=== PATIENT | female | born 1985 | race Two or more races ===

== ENCOUNTER 2022-11-16 10:34 | Outpatient (CLI) | payer OTHER | END 2022-11-16 11:20 | disposition home or self-care (01) | LOC: EDBD 10:34 → PRENATAL 10:34 | PROVIDERS: ATTEND Obstetrics & Gynecology Maternal & Fetal Medicine | DX: O36.80X0 Pregnancy with inconclusive fetal viability, not applicable or unspecified (principal); O09.519 Supervision of elderly primigravida, unspecified trimester; Z3A.12 12 weeks gestation of pregnancy ==

== ENCOUNTER 2023-01-04 10:35 | Outpatient (CLI) | payer OTHER | END 2023-01-04 12:07 | disposition home or self-care (01) | LOC: PRENATAL 10:35 | PROVIDERS: ATTEND Obstetrics & Gynecology Maternal & Fetal Medicine | DX: O35.9XX0 Maternal care for (suspected) fetal abnormality and damage, unspecified, not applicable or unspecified (principal); O35.3XX0 Maternal care for (suspected) damage to fetus from viral disease in mother, not applicable or unspecified; O34.80 Maternal care for other abnormalities of pelvic organs, unspecified trimester; O44.00 Complete placenta previa NOS or without hemorrhage, unspecified trimester; O09.519 Supervision of elderly primigravida, unspecified trimester; Z3A.19 19 weeks gestation of pregnancy ==

== ENCOUNTER 2023-04-02 13:36 | Outpatient (CLI) | payer OTHER | END 2023-04-02 13:37 | disposition home or self-care (01) | LOC: PRENATAL 13:36 | PROVIDERS: ATTEND Obstetrics & Gynecology Maternal & Fetal Medicine | DX: O26.849 Uterine size-date discrepancy, unspecified trimester (principal); O36.8199 Decreased fetal movements, unspecified trimester, other fetus; O09.519 Supervision of elderly primigravida, unspecified trimester; O34.80 Maternal care for other abnormalities of pelvic organs, unspecified trimester; Z3A.34 34 weeks gestation of pregnancy ==

== ENCOUNTER 2023-04-22 12:15 | Emergency (ER) | payer OTHER ==
[~2023-04-22] VITALS: Ht 175.3 cm; Wt 88.0 kg
[2023-04-22] MEDS ORDERED: PRENATAL + DHA1 EAC1 PO (12:39)
[2023-04-22 13:52] LABS: HEMATOCRIT 29.7 % (36.0-45.00); HEMOGLOBIN 9.6 g/dL (12.0-15.00); MEAN CELL VOLUME 71.5 fL (80.00-100.00); MEAN CORPUSCULAR HEMOGLOBIN 23.1 pg (27.00-32.0); MEAN CORPUSCULAR HGB CONC 32.3 g/dl (32.0-36.0); PLATELET COUNT 299 K/uL (150-450); RED BLOOD COUNT 4.15 M/uL (4.00-6.00); RED CELL DISTRIBUTION WIDTH 16.5 % (11.5-14.5)
[2023-04-22 14:09] LABS: ALBUMIN 2.9 gm/dL (3.4-5.0); BILIRUBIN TOTAL 0.34 mg/dL (0.3-1.2); CALCIUM 8.9 mg/dL (8.5-10.1); CREATININE SERUM 0.56 mg/dL (0.55-1.02); GFR 120.52; GLOBULINA 4.3 G/DL (2.4-3.5); POTASSIUM 3.89 mEq/L (3.5-5.1); TOTAL PROTEIN 7.2 gm/dL (6.4-8.2)
[2023-04-22] MEDS ORDERED: XOPENEX CO1.25 MG/0. IH (15:16)
[2023-04-22] MEDS ORDERED: BENZONATATE200 M1 PO (15:16)
[2023-04-22] MEDS ORDERED: TUSNEL LIQUID178 ML PO (15:16)
== END 2023-04-22 15:25 | disposition home or self-care (01) ==
LOC: ER 12:16
PROVIDERS: General Practice
DX: U07.1 COVID-19 (principal); J06.9 Acute upper respiratory infection, unspecified

== ENCOUNTER 2023-05-23 07:36 | Inpatient (IN) | payer OTHER ==
[~2023-05-23] VITALS: Ht 175.3 cm; Wt 4.1 kg
[~2023-05-23 07:36] MED LIST: BENZONATATE200 M1 PO; PRENATAL + DHA1 EAC1 PO; TUSNEL LIQUID178 ML PO; XOPENEX CO1.25 MG/0. IH
[2023-05-23] MEDS ORDERED: GALZIN25 MG PO (09:34)
[2023-05-23] MEDS ORDERED: VITAMIN D310 MCG/1 M PO (09:34)
[2023-05-23] MEDS ORDERED: VITAMIN C100 MG PO (09:34)
[2023-05-23 09:51] LABS: HEMATOCRIT 30.8 % (36.0-45.00); HEMOGLOBIN 9.8 g/dL (12.0-15.00); MEAN CORPUSCULAR HEMOGLOBIN 22.2 pg (27.00-32.0); PLATELET COUNT 273 K/uL (150-450); RED BLOOD COUNT 4.44 M/uL (4.00-6.00); RED CELL DISTRIBUTION WIDTH 16.9 % (11.5-14.5); URINE APPEARANCE Clear; URINE BILIRRUBIN Negative (NEGATIVE); URINE BLOOD Negative; URINE COLOR Yellow; URINE GLUCOSE Negative (NEGATIVE); URINE LEUKOCYTE Trace; URINE NITRATE Negative; URINE PROTEIN Negative (NEGATIVE)
[2023-05-23 09:53] LABS: MEAN CELL VOLUME 69.3 fL (80.00-100.00)
[2023-05-23 09:56] LABS: URINE EPITHELIAL CELLS 23.3 uL (0.0-38.8); URINE RBC 5.1 uL (0.0-20.8); URINE WBC 13.4 uL (0.0-23.2)
[2023-05-23 10:03] LABS: INR < 0.93; PARTIAL THROMBOPLASTIN TIME 26.4 SECONDS (22.0-34.0); PROTHROMBIN TIME 9.6 SECONDS (9.0-11.5)
[2023-05-23 10:20] LABS: BILIRUBIN TOTAL 0.38 mg/dL (0.3-1.2); CALCIUM 9.2 mg/dL (8.5-10.1); CREATININE SERUM 0.62 mg/dL (0.55-1.02); GFR 107.16; POTASSIUM 4.6 mEq/L (3.5-5.1)
[2023-05-23] MEDS ORDERED: MISOPROSTOL 25 MCG/4 ML GEL.W.APPL VAG ONE ×2 (11:00→17:15)
[2023-05-23] MEDS ORDERED: CLINDAMYCIN PHOSPHATE 150 MG/ML (900mg) ONE (23:11)
[2023-05-24] MEDS ORDERED: CLINDAMYCIN PHOSPHATE 150 MG/ML (600mg) IV SCH
[2023-05-24] MEDS ORDERED: CLINDAMYCIN PHOSPHATE 150 MG/ML (900mg) ONE (05:37)
[2023-05-24] MEDS ORDERED: CHLORHEXIDINE GLUCONATE 120 ML BOTTLE TOP ONE (13:23)
[2023-05-24] MEDS ORDERED: ERYTHROMYCIN BASE 3.5 GM OINT...G. OP ONE (13:23)
[2023-05-24] MEDS ORDERED: OXYTOCIN 10 UNITS/ML VIAL ONE (13:23)
[2023-05-24] MEDS ORDERED: CEFAZOLIN SODIUM 1,000 MG VIAL IV ONE (15:00)
[2023-05-24] MEDS ORDERED: ERYTHROMYCIN BASE 1 GM TUBE OP ONE (15:00)
[2023-05-24] MEDS ORDERED: MEPERIDINE HCL/PF 50 MG/ML VIAL IM PRN (15:15)
[2023-05-24 15:21] LABS: ABG PH 7.303 (7.35-7.45); ABG pCO2 42.5 mmHg (35-45)
[2023-05-24 15:23] LABS: ABG PO2 21.6 mmHg (80-100); BASE EXCESS -5.6 mmol/l; BICARBONATE 20.6 mmol/l (23-25); SaO2 28.8 %; Tco2 21.9 mmol/l; o2 21 %
[2023-05-24] MEDS ORDERED: PROMETHAZINE HCL 25 MG/ML AMPUL IM SCH (17:00)
[2023-05-25] MEDS ORDERED: MEPERIDINE HCL/PF 25 MG/ML VIAL IM SCH (00:18)
[2023-05-25] MEDS ORDERED: OxyCODONE HCL/APAP UD (PERCOCET) PO PRN (09:15)
[2023-05-26] MEDS ORDERED: SIMETHICONE 125 MG CAPSULE PO SCH (18:13)
== END 2023-05-27 12:46 | disposition home or self-care (01) | DRG 785 ==
LOC: LDR 07:36 → O/R 05-24 14:23 → OB/GYN 05-24 16:34
PROVIDERS: ADMIT Obstetrics & Gynecology Obstetrics; ATTEND Obstetrics & Gynecology Obstetrics
PROC: 3E0P7VZ Introduction of Hormone into Female Reproductive, Via Natural or Artificial Opening (ICD-10-PCS; 2023-05-23)
PROC: 4A1HXCZ Monitoring of Products of Conception, Cardiac Rate, External Approach (ICD-10-PCS; 2023-05-23)
PROC: 0UB70ZZ Excision of Bilateral Fallopian Tubes, Open Approach (ICD-10-PCS; 2023-05-24)
PROC: 3E033VJ Introduction of Other Hormone into Peripheral Vein, Percutaneous Approach (ICD-10-PCS; 2023-05-24)
PROC: 10D00Z1 Extraction of Products of Conception, Low, Open Approach (ICD-10-PCS; principal; 2023-05-24 13:00)
DX: O61.0 Failed medical induction of labor (principal); O36.63X0 Maternal care for excessive fetal growth, third trimester, not applicable or unspecified; Z3A.39 39 weeks gestation of pregnancy; Z37.0 Single live birth; Z30.2 Encounter for sterilization; Z20.822 Contact with and (suspected) exposure to COVID-19